=== PATIENT | female | born 1940 | race African-American/Black ===

== ENCOUNTER → 2017-10-09 10:35 | Outpatient (POV) | payer MEDICARE, SELFPAY | PROVIDERS: Family Provider Internal Medicine; PCP Internal Medicine; Visit Provider Otolaryngology | DX: Z00.00 Encounter for general adult medical examination without abnormal findings (principal) ==

== ENCOUNTER → 2017-10-19 14:23 | Outpatient (CLI) | payer MEDICARE, SELFPAY ==
--- NOTE | 2017-10-19 14:28 | CT_ITS ---
CT sinus wo con CLINICAL HISTORY: ITS.REASON: HEARING LOSS OF RT EAR,FLAT TYMPANOGRAM OF RT EAR ORDERING PHYSICIAN: Sandi Zaidi MD PATIENT AGE: 77 years COMPARISON:None TECHNIQUE: Axial, sagittal and coronal images are generated and reviewed. All CT scans at this facility use one or more dose reduction techniques, viz.: automated exposure control; ma/kV adjustment per patient size (including targeted exams where dose is matched to indication; i.e. head) or iterative reconstruction technique. PROCEDURE: IV detail thin sections temporal bone were obtained, with sagittal, coronal and axial reconstructions reviewed. Left mastoid air cells are well-developed and moderate extensive. .. Right mastoid air cells are less well-developed with right temporal bone/mastoid less pneumatized. The ossicles survey images appear intact bilaterally, and recently symmetric. Middle ear appears clear. IACs appear symmetric. Normal caliber and size. The semicircular canal and cochlea appear satisfactory on and symmetric on today's review. . The bony scutum intact and appears normal bilaterally.The region tympanic membrane appears satisfactory. External canal patent unremarkable.. The visualized paranasal sinuses are clear. The tissues at the posterior nasopharynx and generous but within normal limits with satisfactory appearance to the torus tubercularis & & fossa of Rosenmuller. IMPRESSION...... No appreciable abnormalities are seen at either temporal bone Middle ear well aerated and clear. Ossicle overview unremarkable. Inner ear structures unremarkable. Incidental Note right mastoid air cells are less well-developed left, with less pneumatized right mastoid bone & tip versus well-developed left mastoid air cells minor observation but noted . Is there remote history of old mastoiditis? Addendum may follow after additional review with thin section images on CT workstation
== END ==
PROVIDERS: Family Provider Internal Medicine; PCP Internal Medicine; Visit Provider Otolaryngology
DX: H90.A11 Conductive hearing loss, unilateral, right ear with restricted hearing on the contralateral side (principal); H74.8X1 Other specified disorders of right middle ear and mastoid
CPT/HCPCS: 70486

== ENCOUNTER → 2020-02-05 09:34 | Outpatient (POV) | payer MEDICARE, SELFPAY | PROVIDERS: Visit Provider Audiologist | DX: Z00.00 Encounter for general adult medical examination without abnormal findings (principal) ==

== ENCOUNTER → 2021-03-24 11:04 | Outpatient (POV) | payer MEDICARE, SELFPAY | PROVIDERS: Visit Provider Audiologist | DX: Z00.00 Encounter for general adult medical examination without abnormal findings (principal) ==

== ENCOUNTER → 2022-01-03 12:55 | Outpatient (CLI) | payer MEDICARE, SELFPAY ==
--- NOTE | 2022-01-03 13:06 | XR_ITS ---
FINAL REPORT CLINICAL HISTORY: RT HIP PAIN, no recent injury FINDINGS: RIGHT HIP Two views of the right hip including an AP pelvis demonstrate no acute fracture or dislocation. The joint spaces appear normal. The visualized bony structures are well aligned. No soft tissue abnormality is seen. IMPRESSION: No acute bony abnormality. Reviewed, Interpreted and Dictated by Maria Esther Daugherty MD Transcribed by Emily Best Authenticated and [facility]
== END ==
PROVIDERS: PCP Nurse Practitioner Family; Visit Provider Nurse Practitioner Family
DX: M25.551 Pain in right hip (principal)
CPT/HCPCS: 73502

== ENCOUNTER → 2022-03-14 13:21 | Outpatient (CLI) | payer MEDICARE, SELFPAY ==
[2022-03-14 14:50] LABS: Erythrocyte Sedimentation Rate 53 mm/hr (0-30)
[2022-03-14 15:30] LABS: Creatine Kinase 103 U/L (30-135)
[2022-03-14 15:37] LABS: C-Reactive Protein 5.2 mg/L (0-4)
== END ==
PROVIDERS: PCP Nurse Practitioner Family; Visit Provider Nurse Practitioner Family
DX: M79.18 Myalgia, other site (principal); M25.50 Pain in unspecified joint
CPT/HCPCS: 36415; 82550; 85651; 86140

== ENCOUNTER → 2022-06-23 14:04 | Outpatient (CLI) | payer MEDICARE, SELFPAY ==
--- NOTE | 2022-06-23 | CA_ITS ---
FINAL REPORT TECHNIQUE: Color Doppler, duplex Doppler and haddad scale sonography of the bilateral neck arterial vasculature was performed. Velocities were measured in the carotid arteries. Stenosis evaluation based on the validated velocity criteria. CLINICAL HISTORY: neck pain, dizziness. FINDINGS: The peak systolic velocity of the right common carotid artery is 62 cm/s. The peak systolic velocity of the right internal carotid artery is 91 cm/s and end diastolic velocity 27 cm/s. The ICA/CCA ratio is 1.6. A small amount of plaque is present. The right external carotid artery is patent. The right vertebral artery is patent with antegrade flow. The peak systolic velocity of the left common carotid artery is 84 cm/s. The peak systolic velocity of the left internal carotid artery is 91 cm/s and end diastolic velocity 24 cm/s. The ICA/CCA ratio is 1.2. A small amount of plaque is present. The left external carotid artery is patent.The left vertebral artery is patent with antegrade flow. IMPRESSION: Less than 50% bilateral carotid stenoses. Bilateral patent vertebral arteries with antegrade flow. If indicated, CTA or MRA could further evaluate. Reviewed, Interpreted and Dictated by Thor Lamar III, MD Transcribed by Heaven Boogie Authenticated and [facility]
== END ==
PROVIDERS: PCP Nurse Practitioner Family; Visit Provider Nurse Practitioner Family
DX: R09.89 Other specified symptoms and signs involving the circulatory and respiratory systems (principal)
CPT/HCPCS: 93880

== ENCOUNTER 2023-08-21 11:19 | Outpatient (CLI) | payer MEDICARE, SELFPAY ==
[2023-08-21 12:44] LABS: Alanine Aminotransferase 30 U/L (12-78); Alkaline Phosphatase 143 U/L (38-126); Anion Gap 15.3 mEq/L (5-15); Aspartate Amino Transferase 37 U/L (14-36); Bilirubin,Total 0.6 mg/dl (0.2-1.3); Blood Urea Nitrogen 18 mg/dl (7-17); Carbon Dioxide 26 mmol/L (22.0-30.0); Chloride 103 mmol/L (98-107); Chol/HDL Ratio 3.9 (1-3.5); Cholesterol 193 mg/dl (140-200); Estimated Glomerular Filt Rate 60 ml/min (>60); GFR (African American) 73 ML/MIN (>60); Globulin 3.9 g/dL (1.3-3.2); Glucose 201 mg/dl (74-100); HDL Cholesterol 50 mg/dl (40-60); Potassium 4.3 mmoL/L (3.5-5.1); Sodium 140 mmol/L (136-145); Total Protein,Serum 7.9 g/dl (6.3-8.2); Triglycerides 182 mg/dl (30-150); VLDL Cholesterol 36 mg/dL (0-40)
== END 2023-08-21 23:59 | disposition home or self-care (01) ==
LOC: LAB 11:22
PROVIDERS: PCP Nurse Practitioner Family; Visit Provider Nurse Practitioner Family
DX: E11.42 Type 2 diabetes mellitus with diabetic polyneuropathy (principal); I25.10 Atherosclerotic heart disease of native coronary artery without angina pectoris
CPT/HCPCS: 36415; 80053; 80061; 83036

== ENCOUNTER 2023-12-20 11:23 | Outpatient (CLI) | payer MEDICARE, SELFPAY ==
--- NOTE | 2023-12-20 11:36 | XR_ITS ---
FINAL REPORT CLINICAL HISTORY: RIGHT HIP PAIN COMPARISON: 01/03/2022 FINDINGS: RIGHT HIP 3 views of the right hip demonstrate no acute fracture or dislocation. The joint spaces appear normal. The visualized bony structures are well aligned. No soft tissue abnormality is seen. Note is made of moderate degenerative change in the lower lumbar spine. IMPRESSION: No acute bony abnormality. Moderate degenerative change in the lower lumbar spine. Reviewed, Interpreted and Dictated by Thor Lamar III, MD Transcribed by Dariela Urbina Authenticated and [facility]
== END 2023-12-20 23:59 | disposition home or self-care (01) ==
LOC: RAD 11:25
PROVIDERS: PCP Nurse Practitioner Family; Visit Provider Nurse Practitioner Family
DX: M25.551 Pain in right hip (principal)
CPT/HCPCS: 73502

== ENCOUNTER 2024-01-07 14:13 | Outpatient (CLI) | payer MEDICARE, SELFPAY ==
--- NOTE | 2024-01-07 14:20 | US_ITS ---
PROCEDURE INFORMATION: Exam: US Left Breast, Complete MG Bilateral Diagnostic Breast Tomosynthesis Exam date and time: 01/07/2024 2:29 PM Age: 83 years old Clinical indication: Left breast palpable lump TECHNIQUE: Imaging protocol: Complete ultrasound of all four quadrants of the left breast and the retroareolar regions, including ultrasound of the axilla when performed. Bilateral Diagnostic tomosynthesis and 2D mammography including computer-aided detection (CAD) when performed. Unilateral or bilateral exam. COMPARISON: MG MM DIG MAMM BI DX W/CAD 01/07/2024 2:07 PM FINDINGS: MAMMOGRAPHY: Breast composition: There are scattered areas of fibroglandular density. Breast mammogram findings: There is no stellate mass, architectural distortion or suspicious microcalcifications in either breast to suggest malignancy. No skin thickening or axillary adenopathy. A skin marker was placed over area of palpable concern left 12 o'clock axis middle third. This corresponds to lobulated 2.2 cm mass. ULTRASOUND: Breast ultrasound findings: Sonographic images of the left 12 o'clock axis 4 cm from the nipple demonstrates a bilobed hypoechoic mass with an echogenic rind. The area of interest measures approximately 2.6 x 1.5 cm in dimension. There is associated architectural distortion present. There is no overlying breast edema or focal skin thickening present. The differential diagnosis includes hematoma versus abscess versus carcinoma. No other solid or cystic masses noted in the remainder of the left breast. No axillary adenopathy. IMPRESSION: Palpable abnormality in the left breast corresponds to an indeterminate mass as described above. Ultrasound-guided core biopsy is recommended for further evaluation. ASSESSMENT: BI-RADS Category 4: Suspicious.
== END 2024-01-07 23:59 | disposition home or self-care (01) ==
LOC: RAD 14:14
PROVIDERS: PCP Nurse Practitioner Family; Visit Provider Physician Assistant
DX: R92.8 Other abnormal and inconclusive findings on diagnostic imaging of breast (principal); Z12.31 Encounter for screening mammogram for malignant neoplasm of breast; N63.20 Unspecified lump in the left breast, unspecified quadrant
CPT/HCPCS: 76641; 77062; 77066; G0279

== ENCOUNTER 2024-03-13 16:41 | Emergency (ER) | payer MEDICARE, SELFPAY ==
[2024-03-13 16:43] VITALS: BP 213/130; PULSE 107; RESP 21; TEMP 36.2; O2SAT 99; BMI 41.5
--- NOTE | 2024-03-13 16:58 | ECG_ITS ---
APPROVED REPORT Exam: Resting ECG HR:129 bpm ECG Measurements Heart Rate 129 AXES QRSd 146 QRS 43 QT 355 T 89 QTc 431 Conclusion ATRIAL FIBRILLATION WITH RAPID VENTRICULAR RESPONSE LEFT BUNDLE BRANCH BLOCK [120+ ms QRS DURATION, 80+ ms Q/S IN V1/V2, 85+ ms R IN I/aVL/V5/V6] ABNORMAL ECG UNCONFIRMED REPORT Electronically signed by : Amando Gupta, 03/13/2024 23:15:57
--- NOTE | 2024-03-13 17:51 | HMH.EDGENADL ---
Discharge Plan Disposition Patient Disposition: Left Against Medical Advice Referrals Follow up/Referrals: Kristan Huertas APRN [Primary Care Provider] - See instructions Clinical Impressions Clinical Impression: Atrial fibrillation with rapid ventricular response, Bilateral edema of lower extremity, LBBB (left bundle branch block) Print Language Print Language: Portuguese Discharge ED Provider: Vianca Gupta General Adult HPI General Chief complaint: Chest Pain Stated complaint: sent by phy- ekg results Time Seen by Provider: 03/13/24 17:24 Mode of Arrival: Ambulatory Source of Information: Patient Limitations: No Limitations Description of Symptoms (Recalled from ER Triage Doc. by RN): pt was sent here per pcp office for abnormal ekg and leg swelling, pt denies any current discomfort and is in no apparent distress History of Present Illness HPI narrative: Patient is an 83-year-old female presenting today from primary care doctor's office for an abnormal EKG. States that she was at her primary care doctor's office for bilateral lower extremity edema that is been ongoing the last several weeks. She states intermittently in the past that this has been present but not to this degree. She states that at some point she has been diagnosed with congestive heart failure but is not sure to what extent that is currently present. She denies any history of coronary artery disease. She has never been diagnosed with atrial fibrillation in the past she is not anticoagulated she does take a daily aspirin. She has not had her blood pressure medications in over 2 days she does not have a current list of her medications. Denies any significant chest pain right now or significant shortness of breath she does sleep upright and states that that is chronic for her. Related Data Allergies Allergy/AdvReac Type Severity Reaction Status Date / Time EGGS Allergy Unknown BREATHING Uncoded 03/27/17 15:11 DIFFICULTY METFORMIN Allergy Unknown NA-NAUSEA Uncoded 03/27/17 15:11 PENICILLIN Allergy Unknown BREATHING Uncoded 03/27/17 15:11 DIFFICULTY/SYNCOPE PFSH [facility] Disclaimer: The information contained in this section may have been updated after the patient was seen, as this information can be updated by other users. Social History Smoking Status: Never smoker alcohol intake: never current occupational status: other Travel in the last 8 weeks: None ROS Obtained: Yes All systems reviewed & no additional complaints except as documented Physical Exam General General appearance: alert and in no apparent distress Respiratory Respiratory exam: Present normal lung sounds bilaterally; Absent respiratory distress Cardiovascular Cardiovascular exam: Present tachycardia and irregular rhythm Neurological Exam Neurological exam: Present alert and oriented X3 Medical Decision Making Medical Records Screening: Per USPSTF and CDC recommendations, given the prevalence of disease in our region, it is our hospital?s policy to screen for HIV and viral Hepatitis for all patients aged 18 and over and those with ongoing risk factors. Obed Inquiry Pt receiving controlled substance: No Vital Signs: 03/13/24 16:43 Temperature 97.2 F L Temperature Source Oral Pulse Rate [Right Radial] 107 H Respiratory Rate 21 Blood Pressure [Right Arm] 213/130 H Blood Pressure Mean [Right Arm] 157 02 Sat by Pulse Oximetry 99 Oxygen Delivery Method Room Air Orders (Tests/Meds): ORDERS Category Date Time Status POCUS Point of Care (ER Only) Stat Exams 03/13/24 17:38 Completed BNP [NT Pro Brain Natriuretic Pep.] Stat Lab 03/13/24 17:39 Ordered CBC w/Auto Diff [Complete Blood Count Auto Diff] Stat Lab 03/13/24 17:38 Ordered CMP [Comprehensive Metabolic Panel] Stat Lab 03/13/24 17:38 Ordered D-Dimer Stat Lab 03/13/24 17:38 Ordered Diarrhea 23 Panel, PCR Stat Lab 03/13/24 17:38 Ordered Magnesium Stat Lab 03/13/24 17:39 Ordered PT INR [Prothrombin Time INR] Stat Lab 03/13/24 17:39 Ordered TSH [Thyroid Stimulating Hormone] Stat Lab 03/13/24 17:38 Ordered Trop I [Troponin I] Stat Lab 03/13/24 17:38 Ordered Troponin I Q3H Lab 03/13/24 20:45 Ordered Troponin I Q3H Lab 03/13/24 23:45 Ordered UA [Urinalysis and Microscopic] Stat Lab 03/13/24 16:54 Ordered ECG Data Tracing #1: I reviewed this ECG and interpreted as documented below: Ventricular rate of 129 atrial fibrillation with rapid ventricular response negative Sgarbossa's criteria no other significant conduction abnormality noted no old EKG to compare to other than EKG from clinic earlier today which is consistent with this EKG Medical Decision Narrative: 83-year-old presenting today with bilateral lower extremity edema and what appears to be a new onset of atrial fibrillation with rapid ventricular response. Differential includes electrolyte abnormalities thyroid dysfunction heart failure TN pulmonary embolism DVT liver failure renal failure etc. Broad workup was initiated. Bedside ultrasound was unremarkable I did a bedside ultrasound primarily to choose which agent to use from a rate control standpoint as the timing of this is unclear. I told the patient that she need to be admitted for rate control as well as anticoagulation patient refuses this. She states that her is at home with cancer they cannot care for himself she has no family or friends around and I told her that if she went home which she was certainly free to do that this could result in stroke disability or and she is aware of this she signed out AMA. I advised that she follow-up with her carrot buncher or her carrot buncher in [facility] in [place] and to return to the emergency department 30/10 if she changes her mind. Procedures Miscellaneous Procedure Procedure Performed: Limited cardiac ultrasound Indication: A-fib RVR evaluation for possible severe LVEF depression Identified structures: The heart was visualized in the parasternal long axis, parastenal short axis, apical four chamber and subxyphiod views. The IVC was visualized in the short axis and long axis at its entry into the right atrium. Findings: Normal LVEF no pericardial effusion no significant right heart strain Impression: Unremarkable limited bedside ultrasound of the heart Images were saved to permanent archive The study was technically adequate CPT: 38935-19 This study was performed by me, and I personally interpreted all images/videos. Based on my clinical judgement, these images were adequate and did not necessitate further imaging. Critical Care Critical Care Time Critical Care Time: Yes Attestation: On 03/13/24, the high probability of a clinically significant, sudden or life threatening deterioration of the following system(s) required my full and direct attention, intervention and personal management. The time I documented below is in addition to time spent performing reported procedures but includes the following listed in this critical care notation. Total Time Total Critical Care Time: 35
--- NOTE | 2024-03-13 17:53 | PC.NURSE ---
er md went into bedside to start ultrasound iv and talk to patient and patient is signing out AMA as she has a sick at home unable to care for himself and she has no one around to help, pt understands that she can come back anytime
[2024-03-13 18:09] VITALS: PULSE 110
[2024-03-13 18:10] VITALS: BP 210/108; PULSE 110; RESP 20; TEMP 36.2; O2SAT 99
[2024-03-13 18:28] LABS: Microscopic, Urine URINE MICROSCOPIC (MICROSCOPIC)
[2024-03-13 19:06] LABS: Appearance,Urine CLEAR (Clear); Bilirubin,Urine Negative (Negative); Blood, Urine TRACE-I (Negative); Color,Urine YELLOW (Yellow); Glucose,Urine (UA) TRACE (Negative); Ketones,Urine Negative (Negative); Leukocyte Esterase,Urine Negative (Negative); Nitrate,Urine Negative (Negative); Protein,Urine 1+ (Negative); Specific Gravity, Urine 1.025 (1.005-1.030); Urobilinogen,Urine 0.2 EU/dl (0.2)
[2024-03-13 21:09] LABS: Bacteria,Urine Trace /lpf; RBC,Urine Occasional #/hpf (0-3)
== END 2024-03-13 18:11 | disposition left against medical advice (07) ==
PROVIDERS: Emergency Provider Student in an Organized Health Care Education/Training Program; PCP Nurse Practitioner Family
DX: I44.7 Left bundle-branch block, unspecified (principal); R60.0 Localized edema; I48.91 Unspecified atrial fibrillation; R94.31 Abnormal electrocardiogram [ECG] [EKG]
CPT/HCPCS: 81001; 93005; 99291

== ENCOUNTER 2024-08-20 12:00 | Outpatient (CLI) | payer MEDICARE, SELFPAY ==
[2024-08-20 17:13] LABS: Microalbumin/Creatinine Ratio 211.3
[2024-08-20 17:48] LABS: Creatinine,Urine Random 60 mg/dL (Not Estab.)
[2024-08-20 18:40] LABS: Hemoglobin A1C 7.5 % (4.0-6.0)
[2024-08-20 19:46] LABS: Direct LDL Cholesterol 95.55 mg/dL (100-129)
[2024-08-20 19:54] LABS: Chloride 106 mmol/L (98-107)
[2024-08-20 19:55] LABS: Albumin Level 4.3 g/dl (3.5-5.0); Potassium 4.8 mmoL/L (3.5-5.1); Sodium 139 mmol/L (136-145)
[2024-08-20 19:58] LABS: Alanine Aminotransferase 25 U/L (12-78); Albumin/Globulin Ratio 1.3 (1.1-1.8); Alkaline Phosphatase 109 U/L (38-126); Anion Gap 13.8 mEq/L (5-15); Aspartate Amino Transferase 28 U/L (14-36); Bilirubin,Total 0.5 mg/dl (0.2-1.3); Blood Urea Nitrogen 41 mg/dl (7-17); Calcium 9.1 mg/dl (8.4-10.2); Carbon Dioxide 24 mmol/L (22.0-30.0); Chol/HDL Ratio 4.8 (1-3.5); Cholesterol 195 mg/dl (140-200); Estimated Glomerular Filt Rate 39 ml/min (>60); GFR (African American) 47 ML/MIN (>60); Globulin 3.4 g/dL (1.3-3.2); Glucose 156 mg/dl (74-100); HDL Cholesterol 41 mg/dl (40-60); Total Protein,Serum 7.7 g/dl (6.3-8.2); Triglycerides 140 mg/dl (30-150); VLDL Cholesterol 28 mg/dL (0-40)
[2024-08-20 20:03] LABS: Thyroid Stimulating Hormone 1.77 uIU/mL (0.465-4.68)
== END 2024-08-20 23:59 | disposition home or self-care (01) ==
LOC: LAB.DROPOF 08-22 13:44
PROVIDERS: PCP Internal Medicine; Visit Provider Internal Medicine
DX: Z00.00 Encounter for general adult medical examination without abnormal findings (principal); Z13.29 Encounter for screening for other suspected endocrine disorder; N18.9 Chronic kidney disease, unspecified; I12.9 Hypertensive chronic kidney disease with stage 1 through stage 4 chronic kidney disease, or unspecified chronic kidney disease; E11.9 Type 2 diabetes mellitus without complications; E78.5 Hyperlipidemia, unspecified
CPT/HCPCS: 80053; 80061; 82043; 82570; 83036; 84439; 84443

== ENCOUNTER 2024-09-17 11:35 | Outpatient (CLI) | payer MEDICARE, SELFPAY ==
--- NOTE | 2024-09-17 11:38 | XR_ITS ---
FINAL REPORT CLINICAL HISTORY: Foot Pain FINDINGS: RIGHT FOOT Two views were obtained. There is no fracture or dislocation. The joint spaces appear normal. There is soft tissue edema over the dorsum of the foot measuring 1.8 cm. There is a small to moderate plantar spur. IMPRESSION: Soft tissue edema without acute bony abnormality. Reviewed, Interpreted and Dictated by Pollo Gaines MD Transcribed by Heaven Boogie Authenticated and [facility]
--- NOTE | 2024-09-17 11:38 | XR_ITS ---
FINAL REPORT CLINICAL HISTORY: pain, diabetic FINDINGS: LEFT FOOT Two views were obtained. There is no fracture or dislocation. The joint spaces appear normal. No soft tissue abnormality is identified. There is a moderate plantar spur. IMPRESSION: No acute process. Reviewed, Interpreted and Dictated by Pollo Gaines MD Transcribed by Heaven Boogie Authenticated and [facility]
--- OUTSIDE RECORDS SUMMARY | 2024-09-17 12:41 | XMS_ITS | CCD ---
Author Organization Unknown Care Team Providers Care Manager Client Support Name Role Phone Non Engaged, [employer] Primary Care Provider Unav ailable Unavailable Chronic Care Management Unavaila ble Summary Purpose DataExchange Insurance Providers Payer name Policy type / Coverage type Covered libertarian ID Effective Begin Date Effective End Date [facility] [id number] Unknown Unknown Family History Family History data not found Medication Administered No Medication Administered data Reason For Visit No Reason For Visit data Medical Equipment No Medical Equipment data Advance Directives No Advance Directive data
--- OUTSIDE RECORDS SUMMARY | 2024-09-17 12:41 | XMS_ITS | CCD ---
Author Organization Unknown Care Team Providers Care Merchant Banker Name Role Phone Non Engaged, [employer] Primary Care Provider Unav ailable Unavailable Chronic Care Management Unavaila ble Summary Purpose [employer]Exchange Insurance Providers Payer name Policy type / Coverage type Covered democrat ID Effective Begin Date Effective End Date [facility] [id number] Unknown Unknown Family History Family History data not found Medication Administered No Medication Administered data Reason For Visit No Reason For Visit data Medical Equipment No Medical Equipment data Advance Directives No Advance Directive data
== END 2024-09-17 23:59 | disposition home or self-care (01) ==
LOC: RAD 11:36
PROVIDERS: PCP Internal Medicine; Visit Provider Internal Medicine
DX: M77.32 Calcaneal spur, left foot (principal); M77.31 Calcaneal spur, right foot; R22.41 Localized swelling, mass and lump, right lower limb; E11.9 Type 2 diabetes mellitus without complications
CPT/HCPCS: 73620

== ENCOUNTER 2024-10-08 09:25 | Outpatient (CLI) | payer MEDICARE, SELFPAY ==
[2024-10-08 14:48] LABS: Hematocrit 41.9 % (37.0-47.0); Hemoglobin 13.3 g/dL (12.2-16.2); Immature Granulocytes % 0.3 %; Mean Corpuscular HGB Conc 31.7 g/dL (31.8-35.4); Mean Corpuscular Hemoglobin 28.8 pg (27.0-31.2); Mean Corpuscular Volume 90.7 fl (81-99); Nucleated Red Blood Cells % 0 %; Platelet Count 194 K/mm3 (142-424); Red Blood Count 4.62 M/mm3 (4.20-5.40); Red Cell Distribution Width-SD 42.0 fL; White Blood Count 6.0 K/mm3 (4.8-10.8)
[2024-10-08 15:25] LABS: Alanine Aminotransferase 23 U/L (12-78); Albumin Level 4.3 g/dl (3.5-5.0); Albumin/Globulin Ratio 1.1 (1.1-1.8); Alkaline Phosphatase 83 U/L (38-126); Aspartate Amino Transferase 36 U/L (14-36); Bilirubin,Total 0.8 mg/dl (0.2-1.3); Blood Urea Nitrogen 24 mg/dl (7-17); Calcium 9.8 mg/dl (8.4-10.2); Carbon Dioxide 29 mmol/L (22.0-30.0); Creatinine,Serum 1.20 mg/dl (0.52-1.04); Estimated Glomerular Filt Rate 43 ml/min (>60); GFR (African American) 52 ML/MIN (>60); Globulin 4.0 g/dL (1.3-3.2); Glucose 99 mg/dl (74-100); Potassium 5.0 mmoL/L (3.5-5.1); Sodium 139 mmol/L (136-145); Total Protein,Serum 8.3 g/dl (6.3-8.2)
[2024-10-08 15:59] LABS: Anion Gap 15.0 mEq/L (5-15); Chloride 100 mmol/L (98-107)
[2024-10-08 16:55] LABS: Iron 92 ug/dL (37-170)
[2024-10-08 17:04] LABS: Total Iron Binding Capacity 364 ug/dL (265-497)
[2024-10-08 17:32] LABS: Ferritin 100 ng/ml (11.1-264)
--- OUTSIDE RECORDS SUMMARY | 2024-10-13 10:30 | XMS_ITS | CCD ---
Author Organization Unknown Care Team Providers Care Insurance Job Titles Name Role Phone Non Engaged, [employer] Primary Care Provider Unav ailable Unavailable Chronic Care Management Unavaila ble Summary Purpose DataExchange Insurance Providers Payer name Policy type / Coverage type Covered constitution party ID Effective Begin Date Effective End Date [facility] [id number] Unknown Unknown Family History Family History data not found Medication Administered No Medication Administered data Reason For Visit No Reason For Visit data Medical Equipment No Medical Equipment data Advance Directives No Advance Directive data
--- OUTSIDE RECORDS SUMMARY | 2024-10-13 10:30 | XMS_ITS | CCD ---
Author Organization Unknown Care Team Providers Care Resident Care Technician Name Role Phone Non Engaged, [facility] Primary Care Provider Unav ailable Unavailable Chronic Care Management Unavaila ble Summary Purpose DataExchange Insurance Providers Payer name Policy type / Coverage type Covered constitution party ID Effective Begin Date Effective End Date [facility] [id number] Unknown Unknown Family History Family History data not found Medication Administered No Medication Administered data Reason For Visit No Reason For Visit data Medical Equipment No Medical Equipment data Advance Directives No Advance Directive data
== END 2024-10-08 23:59 | disposition home or self-care (01) ==
LOC: LAB.DROPOF 10-13 09:26
PROVIDERS: PCP Internal Medicine; Visit Provider Internal Medicine
DX: N18.9 Chronic kidney disease, unspecified (principal); R53.83 Other fatigue
CPT/HCPCS: 80053; 82728; 83540; 83550; 85025

== ENCOUNTER 2024-11-05 15:57 | Outpatient (RCR) | payer MEDICARE, SELFPAY ==
--- NOTE | 2024-11-05 18:19 | HMH.PTOPEV ---
PT Outpatient Evaluation Rehab PT Outpatient Evaluation Start: 11/05/24 16:01 Freq: Status: Active Protocol: Document 11/05/24 16:04 SEANJOI (Rec: 11/05/24 18:19 APPLE [id number]) E-signed By Fany Graham, PT Outpatient Therapy Subjective History Subjective History Pt is a 84 y/o female referred to PT for generalized muscle weakness and bilateral foot pain. Pt reports chronic bilateral foot pain for ~1 year with gradual worsening overtime, denies known trauma or injury. Pt reports R>L foot pain of the medial arch, top of her foot and her toes described as sharp, burning, numb and tingly. Pt reports pain/paresthesia are aggravated by prolonged standing, walking, and incline walking up/ down the ramp at her house. Pt reports pain is worse at night time and impairs her sleep. Pt had xrays of her feet on 09/17/24 with right foot impression of There is no fracture or dislocation. The joint spaces appear normal. There is soft tissue edema over the dorsum of the foot measuring 1.8 cm. There is a small to moderate plantar spur and left foot impression of Moderate plantar spur, No acute findings. Pt reports she was given metatarsal pads which assisted with her pain but states she is out of them. Pt reports she uses Aspercreme which also helps with pain. Pt reports she has been using a SPC for ambulation due to BLE weakness since the s. Pt repots both legs also feel numb from her knees down with noted BLE swelling. Medical History: Hypertension, Type II Diabetes, Diabetic Neuropathy, Gout, Allergies, Breast Cancer diagnosed last January New diagnosis of Yes: Breast Cancer cancer in past 12 months? Chief Complaint Pain,Swelling,Paresthesia,Weakness Symptom Type Throb,Sharp,Burning,Numbness,Tingling Symptoms Relieved By Rest/Positioning,OTC Meds Symptoms Aggravated Standing,Physical Activity,Walking By Current Functional Standing,Squatting,Recreation Activity,Walking,Stairs, Limitations Balance Symptom Description Constant but Variable Level of pain today 7 (0-10) Pain scale - at its 6 best (0-10) Pain scale - at its 10 worst (0-10) Hip/Knee Eval MMT bilateral Hip Flexion Strength 4- Good- Grade Hip Abduction 4- Good- Strength Grade Hip Adduction 4- Good- Strength Grade Hip Extension 4- Good- Strength Grade Knee Extension 4 Good Strength Grade Knee Flexion 4 Good Strength Grade Ankle/Foot Eval Gait Observation General Gait Pattern Wide Based Gait Observation Assistive Device Ambulation Assistive Straight Cane Device Palpation Tenderness bilateral Ankle/Foot Palpation Tenderness Findings Ankle/Foot Palpation medial arch, PF insertion, medial & lateral malleoli, Overall Comment dorsum of foot ROM left Ankle/Foot 5 Dorsiflexion W/Knee Flexed Passive Range Motion (degrees) Ankle/Foot Plantar 15 Flexion Active Range of Motion (degrees) Ankle/Foot Eversion 9 Active Range of Motion (degrees) Ankle/Foot Inversion 5 Active Range of Motion (degrees) right Ankle/Foot 3 Dorsiflexion w/Knee Extended Active Range Motion ( degrees) Ankle/Foot Plantar 10 Flexion Active Range of Motion (degrees) Ankle/Foot Eversion 5 Active Range of Motion (degrees) Ankle/Foot Inversion 12 Active Range of Motion (degrees) MMT left Ankle Dorsiflexion 3+ Fair+ Strength Grade Ankle Plantarflexion 3+ Fair+ Strength Grade Foot Eversion 3+ Fair+ Strength Grade Foot Inversion 3+ Fair+ Strength Grade right Ankle Dorsiflexion 3+ Fair+ Strength Grade Ankle Plantarflexion 3+ Fair+ Strength Grade Foot Eversion 3+ Fair+ Strength Grade Foot Inversion 3+ Fair+ Strength Grade Balance Eval [place]omberg Feet Together/Eyes pass open/Stable Surface Feet Together/Eyes fail Closed/Stable Surface Feet Together/Eyes fail open/Unstable Surface Feet Together/Eyes fail Closed/Unstable Surface Lower Extremity Functional Index Activities Today, do you or would you have any difficulty at all with: a.Any of your usual No difficulty work, housework or school activities b. Your usual Extreme difficulty or unable to perform activity hobbies, recreational or sporting activities c. Getting into or A little bit of difficulty out of the bath d. Walking between A little bit of difficulty rooms e. Putting on your A little bit of difficulty shoes or socks f. Squatting Quite a bit of difficulty g. Lifting an object Quite a bit of difficulty , like a bag of groceries from the floor h. Performing light A little bit of difficulty activities around your home i. Performing heavy Quite a bit of difficulty activities around your home j. Getting into or A little bit of difficulty out of a car k. Walking 2 blocks Extreme difficulty or unable to perform activity l. Walking a mile Extreme difficulty or unable to perform activity m. Going up or down Extreme difficulty or unable to perform activity 10 stairs (about 1 flight of stairs) n. Standing for 1 Extreme difficulty or unable to perform activity hour o. Sitting for 1 Quite a bit of difficulty hour p. Running on even Extreme difficulty or unable to perform activity ground q. Running on uneven Extreme difficulty or unable to perform activity ground r. Making sharp Extreme difficulty or unable to perform activity turns while running fast s. Hopping Extreme difficulty or unable to perform activity t. Rolling over in A little bit of difficulty bed LEFI Score Lower Extremity 26 Functional Index Score Miscellaneous Dx PT Eval Objective Objective Observation: pes planus and hallux valgus noted bilaterally 1+ pitting edema noted of BLE Outpatient Therapy Assessment Impairments Problems/ Palpation Tenderness,Impaired Range of Motion,Impaired Impairmments Strength,Impaired Gait Pattern,Impaired Walking, Impaired Standing,Impaired Household Care,Impaired Stair Climbing,Impaired Incline Stepping,Impaired Stepping on Uneven Surface,Impaired Squatting,Impaired Bending,Impaired Balance,Increased Edema,Lymphedema Present,Subjective C/O Pain,Impaired Self Care/Self Management Prognosis Rehab Potential Good Comment Barriers to progress include nature of condition of diabetic neuropathy Clinical Impression Consistent with Yes Diagnosis Short Term Goals Number of Weeks 3 Improve LEFI Score Yes: Improve score to 31/80 to improve overall QOL Decrease Subjective Yes: Improve pain at worst to 8/10 to improve overall C/O Pain QOL Improve Self Care/ Yes Self Management Patient to be Ind w/ Yes HEP [place] Ro[place] Goals Number of Weeks 6 Increase Range of Yes: Improve B ankle AROM PF to at least 30, DF to 10, Motion Inv to 20, Ev to 10-15 Increase Strength Yes: Improve BLE MMT to 4-4+/5 grossly to assist with function Improve Incline Yes: report ability to traverse ramp at her home with p Stepping Ability ! 6/10 or less Improve Balance Yes: FT unstable surface EO x30 without LOB to decrease fall risk Improve LEFI Score Yes: Improve score to 40/80 to improve overall QOL Decrease Edema Yes Decrease Subjective Yes: Improve pain at worst to 6/10 to improve overall C/O Pain QOL Outpatient Therapy Plan of Care Treatment Plan May Include Therapeutic Exercise Yes Including Home Exercise Program Manual Therapy Yes Techniques Neuromuscular Re- Yes education Therapeutic Yes Activities to Return to Previous Functional/Work Level Gait Training Yes ADL/Self Care Yes Education Thermal Modalities Yes Electrical Yes Stimulation Ultrasound/ Yes Phonophoresis Iontophoresis Yes Orthotics/Bracing/ Yes Splinting Vasopneumatic Yes Compression Pump Massage Yes Manual Lymphatic Yes Drainage Group Therapy for Yes Medicare Eval/Re-Eval Yes Frequency Times per week 2 Duration Number of Weeks 4-6 Addendums This patient is a No candidate for social or vocational rehab ? Patient/Guardian Yes verbally acknowledges understanding of treatment program and consents to further treatment? Patient/Guardian Yes verbally acknowledges understanding of diagnosis, prognosis and goals for treatment? Eval Complexity PT Charges 36669 - Moderate Complexity Shoulder/Elbow Eval Shoulder Objective Measurements Elbow Objective Measurements PHYSICIAN CERTIFICATION: I certify the specified therapy services for Thony Reyes are required, authorized, and reviewed every 30 days.
== END 2024-11-05 23:59 | disposition home or self-care (01) ==
LOC: PT 15:57
PROVIDERS: PCP Internal Medicine; Visit Provider Podiatrist
DX: M62.81 Muscle weakness (generalized) (principal); M79.671 Pain in right foot; M79.672 Pain in left foot
CPT/HCPCS: 97162

== ENCOUNTER 2024-12-03 17:00 | Outpatient (RCR) | payer MEDICARE, SELFPAY ==
--- NOTE | 2024-12-03 18:10 | HMH.RHREAS ---
Rehab Reassessment Rehab OP Re-assessment Start: 11/17/24 16:08 Freq: Status: Active Protocol: Document 12/03/24 17:12 APPLE (Rec: 12/03/24 18:10 APPLE [id number]) E-signed By Fany Graham PT Lower Extremity Functional Index Activities Today, do you or would you have any difficulty at all with: a.Any of your usual A little bit of difficulty work, housework or school activities b. Your usual A little bit of difficulty hobbies, recreational or sporting activities c. Getting into or A little bit of difficulty out of the bath d. Walking between A little bit of difficulty rooms e. Putting on your A little bit of difficulty shoes or socks f. Squatting Moderate difficulty g. Lifting an object Quite a bit of difficulty , like a bag of groceries from the floor h. Performing light A little bit of difficulty activities around your home i. Performing heavy Quite a bit of difficulty activities around your home j. Getting into or A little bit of difficulty out of a car k. Walking 2 blocks Extreme difficulty or unable to perform activity l. Walking a mile Extreme difficulty or unable to perform activity m. Going up or down Extreme difficulty or unable to perform activity 10 stairs (about 1 flight of stairs) n. Standing for 1 Extreme difficulty or unable to perform activity hour o. Sitting for 1 Moderate difficulty hour p. Running on even Extreme difficulty or unable to perform activity ground q. Running on uneven Extreme difficulty or unable to perform activity ground r. Making sharp Extreme difficulty or unable to perform activity turns while running fast s. Hopping Extreme difficulty or unable to perform activity t. Rolling over in A little bit of difficulty bed LEFI Score Lower Extremity 30 Functional Index Score Rehab Re-assessment Subjective Subjective Pt reports noted improvements with PT treatment. Pt states she has improved symptoms for 1-2 day following PT sessions and notices improvement in symptoms with performance of HEP. Pt reports improved edema noted with wear of provided tubigrip. Pt reports continued bilateral dorsal foot and toe pain rate 10/10 at worst and 3/10 at best on VAS. 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 Objective Objective Notes R ankle: TTP- 1/4 TTP of syndesmosis, medial malleoli, medial arch, MTPs AROM- DF 10, PF 22, Inv 12, Ev 5 MMT- 4-/5 grossly L ankle: TTP- 1-2/4 TTP of syndesmosis, medial malleoli, medial arch, MTPs AROM- DF 10, PF 22, Inv 5, Ev 10 MMT- DF 4-/5, PF 4-/5, Inv 3+/5, Ev 3+/5 Assessment Progress Assessment Progressing as Expected Assessment Notes Pt has attended 5 PT treatment sessions consisting of aerobic exercise, ankle AROM, LE stretching/ strengthening, balance/proprioception and HEP with good tolerance. Pt demonstrated improved subjective report of pain at best, LEFS score, ankle AROM and MMT this date compared to the initial evaluation. Pt continues to report severe bilateral foot pain at worst aggravated by prolonged standing, walking and household activities. Overall, the pt would continue to benefit from skilled PT to further improve subjective report of pain, ankle AROM, LE MMT, edema, balance/ proprioception and functional activity tolerance to improve overall QOL/function. PT Patient Goals PT Short Term ST/3 Patient Goals 1. Improve LEFS score to 31/80 to improve overall QOL - NOT MET 2. Improve pain at worst to 8/10 to improve overall QOL -NOT MET 3. Verbalize compliance with HEP to assist with overall progress -MET PT Window Display Designer Patient LTG: Goals 1. Improve B ankle AROM PF to 30, DF to 10, Inv to 20, Ev 10-15 2. Improve B ankle MMT to 4-4+/5 grossly to assist function 3. Report ability to traverse home ramp with pain 6/10 or less 4. Perform FT unstable surface EO x30 without LOB to decrease fall risk 5. Improve LEFS score to 40/80 to improve overall QOL 6. Plan Plan Continue POC without modification to include therapeutic exercise, therapeutic activity, neuromuscular re-education to address remaining deficits Frequency of Therapy 2x/week Duration of Therapy 4 more weeks Therapeutic Exercise Yes Including Home Exercise Program Manual Therapy Yes Techniques Neuromuscular Re- Yes education Therapeutic Yes Activities to Return to Previous Functional/Work Level Gait Training Yes Thermal Modalities Yes Electrical Yes Stimulation Ultrasound/ Yes Phonophoresis Iontophoresis Yes Orthotics/Bracing/ Yes Splinting Vasopneumatic Yes Compression Pump Massage Yes Group Therapy for Yes Medicare Eval/Re-Eval Yes Time and Billing Re-Eval Time 10 Re-Eval Billing 0 Units Charge for PT No reassessment? Charge for OT No reassessment? PHYSICIAN CERTIFICATION: I certify the specified therapy services for Thony Jones Sharp are required, authorized, and reviewed every 30 days.
== END 2024-12-03 23:59 | disposition home or self-care (01) ==
LOC: PT 17:00
PROVIDERS: Visit Provider Podiatrist
DX: M62.81 Muscle weakness (generalized) (principal); M79.671 Pain in right foot; M79.672 Pain in left foot
CPT/HCPCS: 97110; 97530

== ENCOUNTER 2024-12-29 17:00 | Outpatient (RCR) | payer MEDICARE, SELFPAY | END 2024-12-29 23:59 | disposition home or self-care (01) | LOC: PT 17:00 | PROVIDERS: PCP Internal Medicine; Visit Provider Podiatrist | DX: M62.81 Muscle weakness (generalized) (principal); M79.671 Pain in right foot; M79.672 Pain in left foot | CPT/HCPCS: 97110; 97112 ==

== ENCOUNTER 2025-02-27 10:30 | Outpatient (CLI) | payer MEDICARE, SELFPAY ==
[2025-02-27 16:22] LABS: Alanine Aminotransferase 26 U/L (12-78); Albumin Level 4.4 g/dl (3.5-5.0); Albumin/Globulin Ratio 1.2 (1.1-1.8); Alkaline Phosphatase 123 U/L (38-126); Anion Gap 13.9 mEq/L (5-15); Aspartate Amino Transferase 36 U/L (14-36); Bilirubin,Total 0.6 mg/dl (0.2-1.3); Blood Urea Nitrogen 30 mg/dl (7-17); Calcium 9.2 mg/dl (8.4-10.2); Carbon Dioxide 26 mmol/L (22.0-30.0); Chloride 104 mmol/L (98-107); Creatinine,Serum 1.20 mg/dl (0.52-1.04); Estimated Glomerular Filt Rate 43 ml/min (>60); GFR (African American) 52 ML/MIN (>60); Globulin 3.7 g/dL (1.3-3.2); Glucose 92 mg/dl (74-100); Potassium 4.9 mmoL/L (3.5-5.1); Sodium 139 mmol/L (136-145); Total Protein,Serum 8.1 g/dl (6.3-8.2)
[2025-02-27 16:29] LABS: Hemoglobin A1C 6.1 % (4.0-6.0)
--- OUTSIDE RECORDS SUMMARY | 2025-03-02 10:50 | XMS_ITS | CCD ---
Author Organization Unknown Care Team Providers Care Audio Video Technician Name Role Phone Non Engaged, [facility] Primary Care Provider Unav ailable Unavailable Chronic Care Management Unavaila ble Summary Purpose DataExchange Insurance Providers Payer name Policy type / Coverage type Covered green party ID Effective Begin Date Effective End Date [facility] [id number] Unknown Unknown Family History Family History data not found Medication Administered No Medication Administered data Reason For Visit No Reason For Visit data Medical Equipment No Medical Equipment data Advance Directives No Advance Directive data
--- OUTSIDE RECORDS SUMMARY | 2025-03-02 10:50 | XMS_ITS | CCD ---
Author Organization Unknown Care Team Providers Care Riffler Tender Name Role Phone Non Engaged, [facility] Primary Care Provider Unav ailable Unavailable Chronic Care Management Unavaila ble Summary Purpose DataExchange Insurance Providers Payer name Policy type / Coverage type Covered democrat ID Effective Begin Date Effective End Date [facility] [id number] Unknown Unknown Family History Family History data not found Medication Administered No Medication Administered data Reason For Visit No Reason For Visit data Medical Equipment No Medical Equipment data Advance Directives No Advance Directive data
--- OUTSIDE RECORDS SUMMARY | 2025-03-02 10:51 | XMS_ITS | Clinical Summary ---
Author Organization [facility] Address [address] [place] [address] Care Team Providers Care Services Manager Name Role Phone Vick Post MD Primary Care Provider Family History Medical History Relation Name Comments Breast cancer Sister Ovarian cancer Neg Hx Relation Name Status Comments Sister Social History Tobacco Use Types Packs/Day Years Used Date Smoking Tobacco: Never Assessed Comments No Sex and Gender Information Value Date Recorded Sex Assigned at Not on file Legal Sex Female 11:45 AM EDT Gender Identity Not on file Sexual Orientation Not on file Plan of Treatment Health Maintenance Due Date Last Done Comments ANNUAL PHYSICAL 1942 DXA SCAN 1940 Pneumococcal Vaccine 50+ (1 of 1 - PCV) 1992 ZOSTER VACCINE (1 of 2) 1992 TDAP/TD VACCINES (2 - Tdap) 06/08/2006 06/08/1996 RSV Vaccine - Adults (1 - 1- dose 75+ series) 2017 INFLUENZA VACCINE 11/07/2024 COVID-19 Vaccine (2024- season) 2024 02/09/2021, 06/16/2020, 05/19/2020 Insurance [facility] MEDICARE ADVANTAGE PPO Care Teams Services Manager Relationship Specialty Start Date End Date Vick Post MD [address] [facility] [address] [place] [id number] PCP - General Adolescent Medicine 02/08/24
== END 2025-02-27 23:59 ==
LOC: LAB.DROPOF 03-02 10:31
PROVIDERS: PCP Internal Medicine; Visit Provider Internal Medicine
DX: I11.0 Hypertensive heart disease with heart failure (principal); E11.42 Type 2 diabetes mellitus with diabetic polyneuropathy; N18.9 Chronic kidney disease, unspecified
CPT/HCPCS: 80053; 83036

== ENCOUNTER 2025-03-04 10:01 | Outpatient (CLI) | payer MEDICARE, SELFPAY ==
--- NOTE | 2025-03-04 10:00 | US_ITS ---
FINAL REPORT TECHNIQUE: Sonographic images of the abdomen were obtained in all four quadrants. CLINICAL HISTORY: abd pain FINDINGS: LIVER: Homogeneous. No focal hepatic lesion or intrahepatic biliary dilatation. Portal vein is patent with normal directional flow. GALLBLADDER: Absent. The common duct measures 5 mm. This is within normal limits for age. PANCREAS: Tail obscured, head normal. RIGHT KIDNEY: 9.6 cm. No hydronephrosis. Mild increased renal echogenicity.. LEFT KIDNEY: 10.5 cm. No hydronephrosis. Mild increased renal echogenicity.. SPLEEN: 10.8 cm. No focal splenic lesion. AORTA/IVC: No abdominal aortic aneurysm. Visualized IVC within normal limits. OTHER: No ascites. IMPRESSION: Increased renal echogenicity bilaterally suggesting medical renal disease. Otherwise, unremarkable exam. Reviewed, Interpreted and Dictated by Neva Johnson MD Transcribed by Yi Gonzalez Authenticated and [facility]
--- OUTSIDE RECORDS SUMMARY | 2025-03-04 10:09 | XMS_ITS | Clinical Summary ---
Author Organization [facility] Address [address] [place] [address] Care Team Providers Care Slot Floor Attendant Name Role Phone Vick Post MD Primary Care Provider [phone] Family History Medical History Relation Name Comments [...] series) 2017 INFLUENZA VACCINE 11/07/2024 COVID-19 Vaccine ( season) 2024 02/09/2021, 06/16/2020, 05/19/2020 Insurance [facility] MEDICARE ADVANTAGE PPO Care Teams Slot Floor Attendant Relationship Specialty Start Date End Date Vick Post MD [address] [facility] [address] [place] [id number] PCP - General Adolescent Medicine 02/08/24
--- OUTSIDE RECORDS SUMMARY | 2025-03-04 10:09 | XMS_ITS | CCD ---
Author Organization Unknown Care Team Providers Care Travel Clerk Name Role Phone Non Engaged, [facility] Primary Care Provider Unav ailable Unavailable Chronic Care Management Unavaila ble Summary Purpose DataExchange Insurance Providers Payer name Policy type / Coverage type Covered republican ID Effective Begin Date Effective End Date [facility] [id number] Unknown Unknown Family History Family History data not found Medication Administered No Medication Administered data Reason For Visit No Reason For Visit data Medical Equipment No Medical Equipment data Advance Directives No Advance Directive data
--- OUTSIDE RECORDS SUMMARY | 2025-03-04 10:09 | XMS_ITS | CCD ---
Author Organization Unknown Care Team Providers Care Staying Machine Operator Name Role Phone Non Engaged, [facility] Primary Care Provider Unav ailable Unavailable Chronic Care Management Unavaila ble Summary Purpose DataExchange Insurance Providers Payer name Policy type / Coverage type Covered republican ID Effective Begin Date Effective End Date [facility] [id number] Unknown Unknown Family History Family History data not found Medication Administered No Medication Administered data Reason For Visit No Reason For Visit data Medical Equipment No Medical Equipment data Advance Directives No Advance Directive data
--- NOTE | 2025-03-04 10:30 | FL_ITS ---
FINAL REPORT CLINICAL HISTORY: Dysphagia/reflux 1:29 s 35.41 mGy FINDINGS: ESOPHAGRAM Radiation dose in reference to Air-Kerma: 35.41 mGy. HISTORY: Dysphagia. PROCEDURE: The patient ingested barium. Effervescent crystals were also administered. Fluoroscopic spot films were obtained. FINDINGS: No esophageal stricture is identified. There is a small sliding-type hiatal hernia. There is no gastroesophageal reflux. Mild esophageal dysmotility was demonstrated during the exam. A 13 mm barium tablet passes through the esophagus and into the stomach without delay. IMPRESSION: Small sliding-type hiatal hernia. Mild esophageal dysmotility. Reviewed, Interpreted and Dictated by Neva Johnson MD Transcribed by PRASAD Bolivar Authenticated and [facility]
[2025-03-04] MEDS: BARIUM SULFATE(LIQUID E-Z-PAQUE);355ML BOTTLE 355 ML PO (11:01)
[2025-03-04] MEDS: E-Z-GASII EFFERVESCENT GRANULES;1PK 1 EACH PO (11:01)
[2025-03-04] MEDS: BARIUM SULFATE (E-Z-HD 340GM);135ML BOTTLE 135 ML PO (11:01)
== END 2025-03-04 23:59 | disposition home or self-care (01) ==
LOC: RAD 10:02
PROVIDERS: PCP Internal Medicine; Visit Provider Internal Medicine
DX: K44.9 Diaphragmatic hernia without obstruction or gangrene (principal); K22.4 Dyskinesia of esophagus; R93.422 Abnormal radiologic findings on diagnostic imaging of left kidney; R93.421 Abnormal radiologic findings on diagnostic imaging of right kidney; R10.9 Unspecified abdominal pain
CPT/HCPCS: 74220; 76700